=== PATIENT | female | born 1935 | race Caucasian/White ===

== ENCOUNTER → 2017-02-18 | Outpatient (CLI) | payer MEDICARE ==
[~2017-02-18] MED LIST: BUME1TAB17 PO; LOSA25TA34 PO; METO100T5 PO; METO25TA6 PO; OMEP20CA10 PO; ONDA4TAB7 PO; OXYC-541 PO; SIMV20TA6 PO; SPIR25TA PO; WARF1TAB6 PO
== END ==
LOC: WC.BC 12:58
DX: Z12.31 Encounter for screening mammogram for malignant neoplasm of breast (principal); N64.59 Other signs and symptoms in breast; Z95.0 Presence of cardiac pacemaker
CPT/HCPCS: 77063; G0202